=== PATIENT | female | born 1975 | race Caucasian/White ===

== ENCOUNTER 2016-07-02 16:44 | Inpatient (IN) | payer BC ==
[2016-07-02] MEDS ORDERED: Alum Hydrox/Mag Hydrox/Simeth 15 ML, Lidocaine 2% 15 ML PO ONE ×2 (17:24)
[2016-07-02] MEDS ORDERED: Sodium Chloride 0.9% 10 ML Syringe FLUSH PRN ×2 (17:25→20:09)
--- NOTE | 2016-07-02 17:39 | EDM.PDOC ---
ED HISTORY OF PRESENT ILLNESS - General Chief Complaint: Chest Pain Stated Complaint: CHEST PRESSURE, ARMS HEAVY, UPPER BACK PAIN Time Seen by Provider: 07/02/16 17:20 Source: Reports: Patient History Limitations: Reports: No limitations - History of Present Illness INITIAL COMMENTS - FREE TEXT/NARRATIVE: Isabel present today with complaints of upper abdominal pain "like a band around my stomach" that radiates between her shoulder blades. She reports she woke today feeling well, she states she did not eat breakfast today. She developed the abdominal pain prior to lunch, tried an antacid without relief, ate minimal food at 1300, tried taking a warm bath and had no pain relief. She presents to the ED 6 hours after onset. 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: Reports: Other Musculoskeletal History: Spinal surgery - Past Surgical History GI Surgical History: Reports: Bariatric procedure Musculoskeletal Surgical History: Reports: Arthroscopic knee, Other (see below) Other Musculoskeletal Surgeries/Procedures:: back surgery Social & Family History - Tobacco Use Smoking Status *Q: Never Smoker - Caffeine Use Caffeine Use: Reports: Coffee - Alcohol Use Alcohol Use History: No - Recreational Drug Use Recreational Drug Use: No ED ROS GENERAL - Review of Systems Review Of Systems: See Below Constitutional: Reports: diaphoresis, other (upper abdominal pain with radiation to upper back, nausea, no emesis for over 6 hours. ) HEENT: Reports: No symptoms Respiratory: Reports: No Symptoms. Denies: Shortness of Breath, Wheezing, Pleuritic Chest Pain, Cough, Sputum, Hemoptysis Cardiovascular: Reports: Other (Chest pressure with epigastric pain, pain is constant with gradual worsening during the past several hours.). Denies: Dyspnea on exertion, Edema, Lightheadedness, Palpitations, PND, Syncope Endocrine: Denies: fatigue, polydypsia, polyuria GI/Abdominal: Reports: Abdominal pain, Nausea. Denies: Black stool, Bloody stool, Constipation, Diarrhea, Difficulty swallowing, Distension, Hematemesis, Hematochezia, Vomiting : Denies: discharge, dysuria, flank pain, hematuria, incontinence, irregular menses Musculoskeletal: Reports: no symptoms Skin: Reports: no symptoms Neurological: Reports: No Symptoms Psychiatric: Reports: No symptoms Hematologic/Lymphatic: Reports: no symptoms Immunologic: Reports: no symptoms ED EXAM, GENERAL - Physical Exam Exam: See Below Exam Limited By: No limitations General Appearance: alert, WD/WN, moderate distress, other (Patient has difficulty sitting or laying on stretcher due to pain. ) Eye Exam: bilateral eye: normal inspection, PERRL Ears: normal external exam, normal canal, normal TMs Throat/Mouth: Normal inspection, Normal lips, Normal teeth, Normal gums, Normal oropharynx, Normal voice, No airway compromise Head: atraumatic Neck: normal inspection, supple, non-tender, full range of motion Respiratory/Chest: no respiratory distress, lungs clear, normal breath sounds, no accessory muscle use, chest non-tender Cardiovascular: normal peripheral pulses, regular rate, rhythm, no edema, no gallop, no murmur, no rub, other (EKG Normal sinus without acute findings. ) Peripheral Pulses: 2+: radial (L), radial (R), dorsalis pedis (L), dorsalis pedis (R) GI/Abdominal: normal bowel sounds, soft, no distention, no abnormal bruit, no mass, guarding, tender Extremities: normal inspection, normal range of motion, non-tender, no pedal edema, normal capillary refill Neurological: alert, oriented, CN II-XII intact, normal cognition, normal gait, no motor/sensory deficits Psychiatric: normal affect, normal mood Skin Exam: Warm, Intact Lymphatic: other (mild diaphoresis) EKG INTERPRETATION EKG Date: 07/02/16 (1649) Time: 17:03 Rhythm: NSR Rate (beats/min): 68 [place]: normal P-wave: present QRS: normal ST-T: normal QT: normal Course - Vital Signs Last Recorded V/S: Last Vital Signs Temp 36.4 C 07/02/16 17:03 Pulse 70 07/02/16 21:49 Resp 14 07/02/16 21:49 BP 137/88 07/02/16 21:49 Pulse Ox 97 07/02/16 21:49 - Orders/Labs/Meds Orders: Active Orders 24 hr Category Date Time Status EKG Documentation Completion [RC] ASDIRECTED Care 07/02/16 17:52 Active Abdomen Pelvis w Cont [CT] Stat Exams 07/02/16 19:51 Taken Chest 2V [CR] Stat Exams 07/02/16 17:21 Taken Gallbladder [Abdomen Ltd] [US] Stat Exams 07/02/16 18:14 Taken Iopamidol [Isovue-300 (61%)] Med 07/02/16 20:15 Active 150 ml IV . DIRECTED Sodium Chloride 0.9% [Saline Flush] Med 07/02/16 17:25 Active 10 ml FLUSH ASDIRECTED PRN Sodium Chloride 0.9% [Saline Flush] Med 07/02/16 20:09 Active 10 ml FLUSH ONETIME PRN Saline Lock Insert [OM.PC] Routine Oth 07/02/16 17:25 Ordered EKG 12 Lead [EK] Routine Ther 07/02/16 17:52 Ordered Medication Orders Hydromorphone HCl (Dilaudid Valve Machine Operator 15 Mg In Ns 30 Ml) 0 mg IV ASDIRECTED RUBINA PRN Reason: Protocol Ampicillin Sodium/Sulbactam (Sodium 3 gm/ Sodium Chloride) 100 mls @ 200 mls/ hr IV Q6H RUBINA Dextrose/Lactated Ringer's (Dextrose 5%-Lactated Ringers) 1,000 mls @ 125 mls/ hr IV ASDIRECTED RUBINA Iopamidol (Isovue-300 (61%)) 150 ml IV . DIRECTED [facility] Last Admin: 07/02/16 20:18 Dose: 150 ml Naloxone HCl (Narcan) 0.4 mg IVPUSH Q2M PRN PRN Reason: Respiratory Distress Sodium Chloride (Saline Flush) 10 ml FLUSH ASDIRECTED PRN PRN Reason: Keep Vein Open Last Admin: 07/02/16 17:28 Dose: 10 ml Sodium Chloride (Saline Flush) 10 ml FLUSH ONETIME PRN PRN Reason: PER RADIOLOGY PROTOCOL Last Admin: 07/02/16 20:18 Dose: 10 ml Lab work reviewed upon completion. Cardiac lab work unremarkable, EKG, Chest x- ray unremarkable. Labs: Laboratory Tests 07/02/16 07/02/16 Range/Units 17:21 17:21 WBC 8.5 (4.5-11.0) K/uL RBC 5.49 (3.30-5.50) M/uL Hgb 12.9 (12.0-15.0) g/dL Hct 42.2 (36.0-48.0) % MCV 77 L (80-98) fL MCH 24 L (27-31) pg MCHC 31 L (32-36) % Plt Count 319 (150-400) K/uL Sodium 140 (140-148) mmol/L Potassium 3.8 (3.6-5.2) mmol/L Chloride 104 (100-108) mmol/L Carbon Dioxide 28 (21-32) mmol/L Anion Gap 8.5 (5.0-14.0) mmol/L BUN 11 (7-18) mg/dL Creatinine 0.8 (0.6-1.0) mg/dL Est Cr Clr Drug Dosing 85.76 mL/min Estimated GFR (MDRD) > 60 (>60) Glucose 106 (74-106) mg/dL Calcium 8.4 L (8.5-10.1) mg/dL Total Bilirubin 0.4 (0.2-1.0) mg/dL AST 16 (15-37) U/L ALT 24 (12-78) U/L Alkaline Phosphatase 75 (46-116) U/L CK-MB (CK-2) 0.3 (0-3.6) mg/mL Troponin I < 0.017 (0.000-0.056) ng/mL Total Protein 7.4 (6.4-8.2) g/dL Albumin 3.7 (3.4-5.0) g/dL Globulin 3.7 H (2.3-3.5) g/dL Albumin/Globulin Ratio 1.0 L (1.2-2.2) Amylase 72 (25-115) U/L Lipase 186 (73-393) U/L Labwork reviewed, WBC, Electrolytes, liver function, cardiac, Amylase, Lipase unremarkable. Patient lab work reviewed with her. Meds: Medications Generic Name Dose Route Start Last Admin Trade Name Freq PRN Reason Stop Dose Admin Hydromorphone HCl 0 mg 07/02/16 21:45 Dilaudid Valve Machine Operator 15 Mg In Ns 30 Ml IV ASDIRECTED [facility] Protocol Ampicillin Sodium/Sulbactam 100 mls @ 200 mls/hr 07/02/16 21:45 Sodium 3 gm/ Sodium Chloride IV Q6H [facility] Dextrose/Lactated Ringer's 1,000 mls @ 125 mls/hr 07/02/16 21:45 Dextrose 5%-Lactated Ringers IV ASDIRECTED RUBINA Iopamidol 150 ml 07/02/16 20:15 07/02/16 20:18 Isovue-300 (61%) IV 150 ml . DIRECTED RUBINA Administration Naloxone HCl 0.4 mg 07/02/16 21:31 Narcan IVPUSH Q2M PRN Respiratory Distress Sodium Chloride 10 ml 07/02/16 17:25 07/02/16 17:28 Saline Flush FLUSH 10 ml ASDIRECTED PRN Administration Keep Vein Open Sodium Chloride 10 ml 07/02/16 20:09 07/02/16 20:18 Saline Flush FLUSH 10 ml ONETIME PRN Administration PER RADIOLOGY PROTOCOL Discontinued Medications Generic Name Dose Route Start Last Admin Trade Name Freq PRN Reason Stop Dose Admin Al Hydroxide/Mg Hydroxide 15 0 ml 07/02/16 17:24 07/02/16 17:28 ml/ Lidocaine HCl 15 ml PO 07/02/16 17:25 15 ml ONETIME ONE Administration Hydromorphone HCl 0.5 mg 07/02/16 17:48 07/02/16 17:58 Dilaudid IM 07/02/16 17:49 Not Given ONETIME ONE Hydromorphone HCl 0.5 mg 07/02/16 17:57 07/02/16 17:58 Dilaudid IVPUSH 07/02/16 17:58 0.5 mg Q1H ONE Administration Hydromorphone HCl 0.5 mg 07/02/16 18:04 07/02/16 18:07 Dilaudid IVPUSH 07/02/16 18:05 0.5 mg ONETIME ONE Administration Hydromorphone HCl 0.5 mg 07/02/16 18:19 07/02/16 18:46 Dilaudid IVPUSH 07/02/16 18:20 0.5 mg ONETIME ONE Administration Sodium Chloride 85 mls @ 3 mls/sec 07/02/16 20:09 07/02/16 20:18 Normal Saline IV 07/02/16 20:10 3 mls/sec ONETIME ONE Administration Ketorolac Tromethamine 30 mg 07/02/16 19:38 07/02/16 20:11 Toradol IVPUSH 07/02/16 19:39 30 mg ONETIME ONE Administration Ondansetron HCl 4 mg 07/02/16 17:48 07/02/16 17:54 Zofran IVPUSH 07/02/16 17:49 4 mg ONETIME ONE Administration - Radiology Interpretation Free Text/Narrative:: PA and lateral chest x-ray completed, read by myself and Dr. Romero. No acute findings noted. Abdominal ultrasound impression: cholelithiasis. No ultrasound evidence of cholecyctitis. No evidence of biliary ductal dilation. Echogenic lesion to right lower lobe of the liver. - Re-Assessments/Exams Free Text/Narrative Re-Assessment/Exam: 07/02/16 18:20 Patient reports pain has improved to 5/10 after 1mg IV dilaudid. US notified of need for gallbladder ultrasound. 07/02/16 19:52 Pain improved with dilaudid IV. Pain 3-5/10. Toradol 30mg IV ordered. 07/02/16 19:[address] a CT of the abdomen and pelvis with contrast. 07/02/16 22:12 CT reports mild gallbladder distention, mild wall thickening of the gastric antrum. Dr. Shameka Norwood notified of patient status, pain, lab work and radiology studies. Patient will be admitted observation, pain controlled. Dr. Shameka Norwood will evaluate, complete further studies and determine any other action needed. Patient notified of plan, all her questions answered. Lab work and imaging reviewed with her. She is in agreement with plan. She notified her family of plan. Departure - Departure Time of Disposition: 21:20 Disposition: Admitted As Inpatient 64 Condition: fair Clinical Impression: Cholelithiases - My Orders Last 24 Hours: My Active Orders 07/02/16 17:21 Chest 2V [CR] Stat 07/02/16 17:25 Sodium Chloride 0.9% [Saline Flush] 10 ml FLUSH ASDIRECTED PRN Saline Lock Insert [OM.PC] Routine 07/02/16 17:52 EKG Documentation Completion [RC] ASDIRECTED EKG 12 Lead [EK] Routine 07/02/16 18:14 Gallbladder [Abdomen Ltd] [US] Stat 07/02/16 19:51 Abdomen Pelvis w Cont [CT] Stat 07/02/16 20:09 Sodium Chloride 0.9% [Saline Flush] 10 ml FLUSH ONETIME PRN 07/02/16 20:15 Iopamidol [Isovue-300 (61%)] 150 ml IV . DIRECTED - Assessment/Plan Last 24 Hours: My Active Orders 07/02/16 17:21 Chest 2V [CR] Stat 07/02/16 17:25 Sodium Chloride 0.9% [Saline Flush] 10 ml FLUSH ASDIRECTED PRN Saline Lock Insert [OM.PC] Routine 07/02/16 17:52 EKG Documentation Completion [RC] ASDIRECTED EKG 12 Lead [EK] Routine 07/02/16 18:14 Gallbladder [Abdomen Ltd] [US] Stat 07/02/16 19:51 Abdomen Pelvis w Cont [CT] Stat 07/02/16 20:09 Sodium Chloride 0.9% [Saline Flush] 10 ml FLUSH ONETIME PRN 07/02/16 20:15 Iopamidol [Isovue-300 (61%)] 150 ml IV . DIRECTED
[2016-07-02] MEDS ORDERED: Ondansetron 4 MG/2 ML SDV IVPUSH ONE (17:48)
[2016-07-02] MEDS: HYDROmorphone 0.5 MG/0.5 ML Syringe IM ONE ×2 (17:52→17:58)
[2016-07-02] MEDS ORDERED: HYDROmorphone 0.5 MG/0.5 ML Syringe IVPUSH ONE ×3 (17:57→18:19)
[2016-07-02] MEDS ORDERED: Ketorolac 30 MG/ML SDV IVPUSH ONE (19:38)
[2016-07-02] MEDS ORDERED: Iopamidol 612 MG/ML 150 ML Bottle IV SCH (20:15)
[2016-07-02] MEDS ORDERED: Naloxone 0.4 MG/ML SDV IVPUSH PRN (21:31)
[2016-07-02] MEDS: HYDROmorphone/Normal Saline 15 MG/30 ML PCA IV SCH (22:32)
[2016-07-02] MEDS: Dextrose 5%-Lactated Ringers 1,000 ML IV SCH (22:32)
[2016-07-02] MEDS: Ampicillin/Sulbactam Na 3 GM in Sodium Chloride 0.9% 100 ML IV SCH (22:46)
[2016-07-03] MEDS: Ondansetron 4 MG/2 ML SDV IVPUSH PRN ×3 (00:13→13:36)
[2016-07-03] MEDS: diphenhydrAMINE 50 MG/ML SDV IVPUSH PRN ×2 (01:13→05:50)
[2016-07-03] MEDS: Ampicillin/Sulbactam Na 3 GM in Sodium Chloride 0.9% 100 ML IV SCH ×4 (03:56→22:32)
[2016-07-03] MEDS: Dextrose 5%-Lactated Ringers 1,000 ML IV SCH ×2 (07:39→22:32)
[2016-07-03] MEDS ORDERED: Propofol 200 MG/20 ML SDV ONE (08:38)
[2016-07-03] MEDS ORDERED: fentaNYL 250 MCG/5 ML SDV ONE ×2 (08:38→11:15)
[2016-07-03] MEDS ORDERED: Neostigmine Methylsulfate 1 MG/ML 5 ML Syringe ONE (08:38)
[2016-07-03] MEDS ORDERED: Dexamethasone 4 MG/ML SDV ONE (08:38)
[2016-07-03] MEDS ORDERED: Succinylcholine/Normal Saline 200 MG/10 ML Syringe ONE (08:38)
[2016-07-03] MEDS ORDERED: Ondansetron 4 MG/2 ML SDV ONE (08:38)
[2016-07-03] MEDS ORDERED: Rocuronium 50 MG/5 ML Vial ONE (08:38)
--- NOTE | 2016-07-03 08:49 | CONS ---
DATE OF SERVICE: 07/03/2016 REFERRING PHYSICIAN: CONSULTING PHYSICIAN: An Louis PA-C HISTORY OF PRESENT ILLNESS: Isabel presented to the emergency room with reports of sudden onset of upper abdominal pain that radiates to her shoulder blades. Her workup did reveal cholelithiasis. She is n.p.o. for laparoscopic cholecystectomy, possible laparotomy, case to follow, general anesthesia. This is her first symptoms like this. ALLERGIES: HAS NO KNOWN MEDICAL ALLERGIES. PAST MEDICAL HISTORY: Alvaro-en-Y gastric bypass surgery 2008, spinal surgery, arthroscopic surgery on knee. SOCIAL HISTORY: Works at [employer], does not smoke. Drinks coffee. No alcohol use. REVIEW OF SYSTEMS: CONSTITUTIONAL: Denies any fever, chills, night sweats, or fatigue. HEENT: Negative. RESPIRATORY: No shortness of breath, wheezing, cough, dyspnea on exertion. CARDIOVASCULAR: Denies any chest pain, shortness of breath, fast or irregular heart beat. ENDOCRINE: Does report some fatigue. GASTROINTESTINAL: As above. See chief complaint. GENITOURINARY: Negative. MUSCULOSKELETAL: No joint pain or swelling. SKIN: Without rash. NEUROLOGIC: No headaches, dizziness, loss of coordination. PSYCHIATRIC: Negative for depression, anxiety, or insomnia. HEMOLYTIC/LYMPHATIC: Negative. PHYSICAL EXAMINATION: GENERAL: Isabel Amador is a 40-year-old female. Height is 5 feet 6 inches. Weight is 230 pounds. VITAL SIGNS: TPR is 96.8, 69, 18, blood pressure 119/68. HEENT: Negative. NECK: Supple. HEART: Regular rate and rhythm. LUNGS: Clear. ABDOMEN: Minimal tenderness right now in the right upper quadrant to palpation. She does have some pain medication that she just took through her [employer]UCT[employer]ILL [employer]PER[employer]. EXTREMITIES: Without peripheral edema. SCDs are on. NEUROLOGIC: Intact. PSYCHIATRIC: Negative. ASSESSMENT: Cholelithiasis. PLAN: 1. Scheduled laparoscopic cholecystectomy, possible open. She is on Unasyn as an IV. Case to follow. General anesthesia. Houston Norwood MD. 2. Check ferritin on blood already drawn. 3. Incentive spirometer. 4. We will evaluate p.r.n. 5. Orders to be written postoperatively. An Louis PA-C /[id number]
[2016-07-03] MEDS ORDERED: Bupivacaine 0.5%/EPINEPHrine 1:200,000 50 ML MDV ONE (09:05)
[2016-07-03] MEDS ORDERED: Scopolamine 1.5 MG Transdermal Patch ONE (09:20)
[2016-07-03] MEDS ORDERED: Naloxone 0.4 MG/ML SDV IVPUSH PRN (09:34)
--- NOTE | 2016-07-03 09:44 | CR ---
Chest 2V FINDINGS: The heart and vascular structures are normal in appearance. No infiltrates or effusions ar e demonstrated. The skeletal structures are unremarkable. IMPRESSION: Negative exam.
[2016-07-03] MEDS ORDERED: hydrOXYzine HCl 50 MG/ML SDV IM ONE (15:00)
[2016-07-03] MEDS ORDERED: Meperidine PF 100 MG/ML Syringe IM ONE (15:00)
[2016-07-03] MEDS ORDERED: Iron Sucrose Complex 500 MG in Sodium Chloride 0.9% 250 ML IV ONE (15:30)
[2016-07-03] MEDS ORDERED: Cyanocobalamin (Vitamin B12) 1,000 MCG/ML SDV IM ONE (16:00)
[2016-07-03] MEDS ORDERED: Pantoprazole 40 MG Vial IVPUSH SCH (16:00)
[2016-07-03] MEDS: VERIFY SCOP PATCH TOP SCH (16:07)
[2016-07-03] MEDS: HYDROmorphone/Normal Saline 15 MG/30 ML PCA IV SCH (23:13)
[2016-07-04] MEDS: Ondansetron 4 MG/2 ML SDV IVPUSH PRN (01:28)
[2016-07-04] MEDS: Acetaminophen/HYDROcodone 325-5 MG Tab PO PRN ×4 (01:54→15:23)
[2016-07-04] MEDS: Ampicillin/Sulbactam Na 3 GM in Sodium Chloride 0.9% 100 ML IV SCH ×2 (03:10→10:16)
[2016-07-04] MEDS ORDERED: Ondansetron 4 MG Tab.DIS PO PRN (07:39)
[2016-07-04] MEDS ORDERED: Iron Sucrose Complex 500 MG in Sodium Chloride 0.9% 250 ML IV ONE (09:00)
[2016-07-04] MEDS ORDERED: ASK ABOUT SCOP PATCH SCH (09:00)
[2016-07-04] MEDS: VERIFY SCOP PATCH TOP SCH (10:17)
[2016-07-04 10:56] VITALS: BP 121/48
--- NOTE | 2016-07-04 15:19 | DISCH ---
ADMISSION DIAGNOSES: Acute cholecystitis, SP Alvaro-en-Y gastric bypass surgery, unspecified surgical malabsorption, and B12 deficiency. DISCHARGE DIAGNOSES: SP laparoscopic cholecystectomy on 07/04/2015 and low ferritin of 8. HISTORY: Isabel Griffin is a 40-year-old female, who presented to the emergency room on 07/02/2016 after she had a complete evaluation. A surgical consult was obtained. After preoperative evaluation and discussion of possible risks and possible complications, she wished to proceed with surgical procedure. HOSPITAL COURSE: Isabel had her surgery on 07/03/2016. She had no operative complications. On postop day #1, her pain was well managed. Her activity was good. She received Venofer 500 mg x2 for a ferritin of eight. She did receive dietary consultation for post status bariatric surgery. She was ready to be discharged on postop day #1. PHYSICAL EXAMINATION: GENERAL: Isabel Amador is a 40-year-old female. VITAL SIGNS: Height is 5 feet 6 inches. Weight is 230 pounds. BMI 37. TPR is 97.9, 70, 16. Blood pressure 111/62. O2 is 94%. HEENT: Negative. NECK: Supple. HEART: Regular rate and rhythm. LUNGS: Clear. ABDOMEN: Dressings dry and intact. BRIANA drain will be removed and abdominal binder is on. EXTREMITIES: Without peripheral edema. DISPOSITION: Discharged to home. CONDITION: Stable and improving. FOLLOWUP APPOINTMENT: An Louis PA-C on 07/12/2016 at 2:00 p.m. HOME MEDICATION: [place] 5/325 mg 1 to 2 every 4 hours p.r.n. pain #50, milk of magnesia 30 mL, 2 were sent home to take 1 daily p.r.n. constipation, three is Zofran ODT 4 mg every 4 hours p.r.n. nausea #30. She is to resume her home medications. DIET AFTER DISCHARGE: Usual diet as tolerated. Drink 8 to 10 glasses of water a day. ACTIVITY: As tolerated. No lifting greater than 10 pounds for 2 weeks[address]riving, do not drive on pain medication. Shower bathing, may shower. Keep operative site clean and dry. Wound incision care. Wear abdominal binder for 2 weeks and then as tolerated. Notify provider if any fever, increased pain, nausea, vomiting, and other instructions use incentive spirometer 10 times every hour while awake for 2 weeks.
--- NOTE | 2016-07-06 14:50 | OR ---
DATE OF PROCEDURE: 07/03/2016 PREOPERATIVE DIAGNOSIS: Subacute cholecystitis. POSTOPERATIVE DIAGNOSES: Acute cholecystitis with cholelithiasis and inflammatory fusion of gallbladder neck to the duodenum. OPERATIVE PROCEDURE: 1. Laparoscopic cholecystectomy (55750). 2. Repair of deserosalized segment of duodenum (58770). ANESTHESIA: General. SAMPLE CHECKER: An Louis PA-C. INDICATION FOR PROCEDURE: This is a 40-year-old female presenting with what appears to be subacute or acute cholecystitis. The plan is to proceed with a laparoscopic cholecystectomy. She was also noted to have thickening of the antrum and duodenum on CT scan. The patient is status post gastric bypass, so that was not easily available for endoscopic evaluation, but I will inspect those areas intraoperatively. Potential risks of the procedure including bleeding, infection, injury to underlying viscera, possible migration of stones in the common bile duct requiring additional treatment were all reviewed, and the patient wishes to proceed. DETAILS OF PROCEDURE: The patient was taken to the operating room and placed in supine position. After general endotracheal anesthesia was induced, the abdomen was prepped and draped. Just to the right of the umbilicus, a transverse incision was made and the peritoneal cavity entered under direct vision with an Optiview trocar, inflated to 15 mmHg pressure of CO2. Laparoscope was then reinserted. No underlying trocar insertion site injuries were seen. Following this, a 12 mm epigastric trocar as well as a single 5 mm right abdominal trocar were placed, and the area of the gallbladder examined. The patient was noted to have marked distention and acute inflammation of the gallbladder. As this was retracted upward, there was noted to be a fusion of the neck of the gallbladder to the duodenum. This likely was resulting in the findings of this area being thickened on the CAT scan. As one dissected the duodenum off, there was a roughly 2 cm that was deserosalized, and no full-thickness injury was noted. This area was then controlled with two figure-of- eight stitches of seromuscular 3-0 Vicryl stitch, and at the end of the procedure, the area was reinforced with fibrin sealant along with an omental patch. From that point, the gallbladder was further dissected and eventually the gallbladder neck and cystic duct junction as well as cystic artery were both isolated. These were then both clipped 3 times proximally and once distally and divided. The gallbladder was dissected off the gallbladder bed using Harmonic Scalpel. This contained multitude of the yellow stones. The epigastric incision needed to be enlarged somewhat in order to deliver the gallbladder up, which eventually was accomplished. At this point, the area of the inspection was identified. No further problems with bile leaks or bleeding were noted at the xiphoid, and eventually above the area of deserosalization, was then reinforced with fibrin sealant along with an omental patch placed over and held there with a 3-0 Vicryl stitch as well. Ta-Arshad drain was then placed in the right lateral trocar site and positioned adjacent to the area of the gallbladder bed. The trocars were removed. Fascia and 12 mm sites were closed with 0 Vicryl stitch and skin with 6-0 Vicryl skin stitch. Dressing was applied. The patient was taken to the recovery room in satisfactory condition. Physician stores assistant, An Louis played an essential role in assisting in this case, helping to position the patient, retract structures as needed, as well as suturing and cutting sutures when indicated. Her presence improved the patient's safety and decreased operative time. Houston Norwood MD /[id number]
== END 2016-07-04 16:00 | disposition home or self-care (01) | DRG 263 ==
LOC: JP.ED 16:44 → JP.2SS 21:29 → OBSVTOIN 07-03 12:30
PROVIDERS: ADMIT Surgery; ATTEND Surgery
PROC: 0DQ94ZZ Repair Duodenum, Percutaneous Endoscopic Approach (ICD-10-PCS; principal; 2016-07-03)
PROC: 0FT44ZZ Resection of Gallbladder, Percutaneous Endoscopic Approach (ICD-10-PCS; principal; 2016-07-03)
DX: K80.00 Calculus of gallbladder with acute cholecystitis without obstruction (principal); K91.2 Postsurgical malabsorption, not elsewhere classified; E53.8 Deficiency of other specified B group vitamins; Z98.84 Bariatric surgery status; Z98.0 Intestinal bypass and anastomosis status; K66.0 Peritoneal adhesions (postprocedural) (postinfection)
CPT/HCPCS: 36415; 71020; 71020-26; 74177; 76705; 80053; 82150; 82247; 82553; 82728; 83690; 84075; 84484; 85027; 88304; 93005; 94762; 96374; 96375; 96376; 99285-25; A9270-GY; C9113; J0295; J1100; J1170; J1200; J1756; J1885; J2175; J2405; J2704; J3010; J3410; J3420; J7030; J7042; J7050